=== PATIENT | female | born 1995 | race American Indian/Alaskan Native ===

== ENCOUNTER 2016-07-23 08:52 | Emergency (ER) | payer SELFPAY ==
[2016-07-23 09:23] VITALS: BP 107/69
--- NOTE | 2016-07-23 09:52 | Emergency Department Report ---
ED Female HPI - General Chief complaint: Urogenital-Female Stated complaint: FREQUENT AND PAINFUL URINATION Time Seen by Provider: 07/23/16 09:38 Source: patient, family Mode of arrival: Ambulatory Limitations: No Limitations - History of Present Illness Initial comments: Patient here complaining of frequent urination and urgency with urination since yesterday. She is complaining of burning and blood in his urine since last night. She is also complaining the lower back pain and pelvic pain this morning. Denies any fever. Denies any nausea vomiting or diarrhea. Pain is 10 out of 10 to her pelvic and 9 out of 10 to her back. MD Complaint: dysuria, pelvic pain Onset/Timin -: days(s) Radiation: non-radiating Severity: severe Severity scale (0 -10): 10 Quality: cramping Improves with: none Worsens with: urination Are you Now?: No Associated Symptoms: abdominal pain, dysuria, hematuria. denies: vaginal discharge, vaginal bleeding, nausea/vomiting, fever/chills, headaches, loss of appetite, rash, seizure, shortness of breath, syncope, weakness - Related Data Sexually active: Yes Previous Rx's Medication Instructions Recorded Last Taken Type Nitrofurantoin [place]/M-Cryst 100 mg PO Q12HR #14 capsule 07/23/16 Unknown Rx [Macrobid CAP] Allergies Allergy/AdvReac Type Severity Reaction Status Date / Time No Known Allergies Allergy Verified 07/23/16 09:24 ED Review of Systems ROS: Stated complaint: FREQUENT AND PAINFUL URINATION Other details as noted in HPI Comment: All other systems reviewed and negative Constitutional: denies: chills, fever Respiratory: no symptoms reported Cardiovascular: denies: chest pain, palpitations, edema, syncope Gastrointestinal: abdominal pain. denies: nausea, vomiting, diarrhea Genitourinary: urgency, dysuria, frequency, hematuria. denies: discharge, abnormal menses, dyspareunia Musculoskeletal: back pain. denies: arthralgia Skin: denies: rash Neurological: denies: headache, weakness, abnormal gait, vertigo ED Past Medical Hx - Past Medical History Previous Medical History?: Yes Hx Hypertension: Yes (NO MEDICATIONS) Hx Congestive Heart Failure: No Hx Diabetes: No Hx Deep Vein Thrombosis: No Hx Renal Disease: No Hx Sickle Cell Disease: No Hx Seizures: No Hx Asthma: No Hx COPD: No Hx HIV: No Additional medical history: Vaginal delivery 11-13-2011 - Surgical History Past Surgical History?: No - Family History Family history: hypertension - Social History Smoking Status: Current Every Day Smoker Substance Use Type: Marijuana - Medications Home Medications: Home Medications Medication Instructions Recorded Confirmed Last Taken Type Nitrofurantoin [place]/M-Cryst 100 mg PO Q12HR #14 capsule 07/23/16 Unknown Rx [Macrobid CAP] ED Physical Exam - General Limitations: No Limitations General appearance: alert, in no apparent distress - Head Head exam: Present: atraumatic, normocephalic, normal inspection - Respiratory Respiratory exam: Present: normal lung sounds bilaterally. Absent: respiratory distress, chest wall tenderness - Cardiovascular Cardiovascular Exam: Present: regular rate, normal rhythm, normal heart sounds - GI/Abdominal GI/Abdominal exam: Present: soft, normal bowel sounds. Absent: distended, tenderness, guarding, rebound, rigid, organomegaly, mass - Extremities Exam Extremities exam: Present: normal inspection, full ROM, normal capillary refill. Absent: tenderness, pedal edema, joint swelling, calf tenderness - Back Exam Back exam: Present: normal inspection, full ROM. Absent: tenderness, CVA tenderness (R), CVA tenderness (L), muscle spasm, paraspinal tenderness, vertebral tenderness, rash noted - Neurological Exam Neurological exam: Present: alert, oriented X3, normal gait - Psychiatric Psychiatric exam: Present: normal affect, normal mood - Skin Skin exam: Present: warm, dry, intact, normal color. Absent: rash ED Course Vital Signs 07/23/16 09:20 Temperature 98.5 F Pulse Rate 78 Respiratory 18 Rate Blood Pressure 107/69 O2 Sat by Pulse 100 Oximetry - Reevaluation(s) Reevaluation #1: 07/23/16 11:28 She is stable throughout ED course ED Medical Decision Making - Lab Data Lab Results 07/23/16 Range/Units 09:43 Urine Color Yellow (Yellow) Urine Turbidity Cloudy (Clear) Urine pH 7.0 (5.0-7.0) Ur Specific [place] 1.020 (1.003-1.030) Urine Protein 100 mg/dl (Negative) mg/dL Urine Glucose (UA) Neg (Negative) mg/dL Urine Ketones Neg (Negative) mg/dL Urine Blood Lg (Negative) Urine Nitrite Neg (Negative) Ur Reducing Substances Not Reportable Urine Bilirubin Neg (Negative) Urine Ictotest Not Reportable Urine Urobilinogen < 2.0 (<2.0) mg/dL Ur Leukocyte Esterase Lg (Negative) Urine WBC (Auto) > 182.0 H (0.0-6.0) /HPF Urine RBC (Auto) > 182.0 (0.0-6.0) /HPF U Epithel Cells (Auto) 2.0 (0-13.0) /HPF Urine Bacteria (Auto) 1+ (Negative) /HPF Urine WBC Clumps 1+ /HPF Calcium Oxalate Crystal 2+ Amorphous Crystals 1+ Urine Mucus Few /HPF Urine HCG, Qual Negative (Negative) Urine culture pending - Medical Decision Making Collaborated with Dr. Ramírez and patient presentation. ED course: I discussed the patient that she has a bladder infection which can cause hemorrhage at times. I also told her that she has protein in her urine and she will need to follow-up for repeat urinalysis in one week. And does not have a primary care physician so I told her to follow up with outside Medical Center. I told her to call the number and subsequent appointment on Monday for repeat urinalysis. Patient voiced understanding of discharge instruction and discharged home in stable condition with prescription for Macrobid. Critical care attestation.: If time is entered above; I have spent that time in minutes in the direct care of this critically ill patient, excluding procedure time. ED Disposition Clinical Impression: Acute cystitis with hematuria, Proteinuria Abdominal pain Qualifiers: Abdominal location: lower abdomen, unspecified Qualified Code(s): R10.30 - Lower abdominal pain, unspecified Disposition: DISCHARGED TO HOME OR SELFCARE Is pt being admited?: No Does the pt Need Aspirin: No Condition: Stable Instructions: Urinary Tract Infection in Women (ED) Additional Instructions: You have protein in the urine and will need to schedule an appointment at [facility] for recheck urinalysis in 7 days. Take medication as prescribed. Drink at least 2-3 L of fluid daily. Prescriptions: Nitrofurantoin [place]/M-Cryst [Macrobid CAP] 100 mg PO Q12HR #14 capsule Referrals: PRIMARY CARE, [Primary Care Provider] - 07/29/16 [facility] [Outside] - 07/29/16 Forms: Work/School Release Form(ED)
[2016-07-23 10:56] LABS: Bacteria,Urine 1+ /HPF (Negative); Bilirubin,Urine NEG (Negative); Blood,Urine LG (Negative); Ketones,Urine NEG (Negative); Leukocyte Esterase,Urine LG (Negative); Mucus,Urine FEW /HPF; Nitrite,Urine NEG (Negative); Urobilinogen,Urine < 2.0 mg/dL (<2.0)
[2016-07-23 10:57] LABS: RBC,Urine > 182.0 /HPF (0.0-6.0); WBC,Urine > 182.0 /HPF (0.0-6.0)
== END 2016-07-23 11:40 | disposition home or self-care (01) ==
LOC: ED 08:52
DX: N30.01 Acute cystitis with hematuria (principal); R80.9 Proteinuria, unspecified; I10 Essential (primary) hypertension; F17.200 Nicotine dependence, unspecified, uncomplicated; F12.10 Cannabis abuse, uncomplicated
CPT/HCPCS: 81001; 81025; 99282

== ENCOUNTER 2016-07-26 11:53 | Emergency (ER) | payer OTHER ==
[2016-07-26 12:03] VITALS: BP 103/56
[2016-07-26 13:02] LABS: Bacteria,Urine 1+ /HPF (Negative); Bilirubin,Urine NEG (Negative); Blood,Urine LG (Negative); Ketones,Urine NEG (Negative); Leukocyte Esterase,Urine MOD (Negative); Mucus,Urine 3+ /HPF; Nitrite,Urine NEG (Negative); Urobilinogen,Urine < 2.0 mg/dL (<2.0)
[2016-07-26 13:03] LABS: RBC,Urine > 182.0 /HPF (0.0-6.0); WBC,Urine > 182.0 /HPF (0.0-6.0)
--- NOTE | 2016-07-26 13:10 | Emergency Department Report ---
ED General Adult HPI - General Chief complaint: Urogenital-Female Stated complaint: POSS UTI Time Seen by Provider: 07/26/16 12:16 Source: patient, EMS Mode of arrival: Ambulatory Limitations: No Limitations - History of Present Illness Initial comments: 20-year-old female presents to the ED complaining about blood in her urine. Patient states that she was just seen here and treated for UTI with Macrobid. States taking medication but no relief. Eyes fever, flank pain, dysuria. Patient also denies abdominal pain. - Related Data Previous Rx's Medication Instructions Recorded Last Taken Type Nitrofurantoin [place]/M-Cryst 100 mg PO Q12HR #14 capsule 07/23/16 Unknown Rx [Macrobid CAP] Ciprofloxacin HCl [Ciprofloxacin 500 mg PO BID #14 tablet 07/26/16 Unknown Rx TAB] Allergies Allergy/AdvReac Type Severity Reaction Status Date / Time No Known Allergies Allergy Verified 07/23/16 09:24 ED Review of Systems ROS: Stated complaint: POSS UTI Other details as noted in HPI Constitutional: denies: chills, fever Eyes: denies: eye pain, eye discharge, vision change ENT: denies: ear pain, throat pain Respiratory: denies: cough, shortness of breath, wheezing Cardiovascular: denies: chest pain, palpitations Endocrine: no symptoms reported Gastrointestinal: denies: abdominal pain, nausea, diarrhea Genitourinary: urgency, frequency, hematuria. denies: dysuria, discharge Musculoskeletal: denies: back pain, joint swelling, arthralgia Skin: denies: rash, lesions Neurological: denies: headache, weakness, paresthesias Psychiatric: denies: anxiety, depression Hematological/Lymphatic: denies: easy bleeding, easy bruising ED Past Medical Hx - Past Medical History Previous Medical History?: Yes Hx Hypertension: Yes (NO MEDICATIONS) Hx Congestive Heart Failure: No Hx Diabetes: No Hx Deep Vein Thrombosis: No Hx Renal Disease: No Hx Sickle Cell Disease: No Hx Seizures: No Hx Asthma: No Hx COPD: No Hx HIV: No Additional medical history: Vaginal delivery 11-13-2011, Freuquent UTI - Surgical History Past Surgical History?: No - Social History Smoking Status: Current Every Day Smoker Substance Use Type: Alcohol - Medications Home Medications: Home Medications Medication Instructions Recorded Confirmed Last Taken Type Nitrofurantoin [place]/M-Cryst 100 mg PO Q12HR #14 capsule 07/23/16 Unknown Rx [Macrobid CAP] Ciprofloxacin HCl [Ciprofloxacin 500 mg PO BID #14 tablet 07/26/16 Unknown Rx TAB] ED Physical Exam - General Limitations: No Limitations General appearance: alert, in no apparent distress - Head Head exam: Present: atraumatic, normocephalic - Eye Eye exam: Present: normal appearance - ENT ENT exam: Present: mucous membranes moist - Neck Neck exam: Present: normal inspection - Respiratory Respiratory exam: Present: normal lung sounds bilaterally. Absent: respiratory distress - Cardiovascular Cardiovascular Exam: Present: regular rate, normal rhythm. Absent: systolic murmur, diastolic murmur, rubs, gallop - GI/Abdominal GI/Abdominal exam: Present: soft, normal bowel sounds - Extremities Exam Extremities exam: Present: normal inspection - Back Exam Back exam: Present: normal inspection - Neurological Exam Neurological exam: Present: alert, oriented X3 - Psychiatric Psychiatric exam: Present: normal affect, normal mood - Skin Skin exam: Present: warm, dry, intact, normal color. Absent: rash ED Course Vital Signs 07/26/16 11:58 Temperature 98.4 F Pulse Rate 97 H Respiratory 20 Rate Blood Pressure 103/56 O2 Sat by Pulse 100 Oximetry ED Medical Decision Making - Medical Decision Making We'll discontinue Macrobid and start on Cipro. Critical care attestation.: If time is entered above; I have spent that time in minutes in the direct care of this critically ill patient, excluding procedure time. ED Disposition Clinical Impression: Acute cystitis with hematuria Disposition: DISCHARGED TO HOME OR SELFCARE Is pt being admited?: No Does the pt Need Aspirin: No Condition: Good Instructions: Urinary Tract Infection in Women (ED) Prescriptions: Ciprofloxacin HCl [Ciprofloxacin TAB] 500 mg PO BID #14 tablet Referrals: PRIMARY CARE, [Primary Care Provider] - 3-5 Days Forms: Work/School Release Form(ED) Time of Disposition: 13:10
== END 2016-07-26 13:15 | disposition home or self-care (01) ==
LOC: ED 11:53
DX: N30.01 Acute cystitis with hematuria (principal); I10 Essential (primary) hypertension; F17.200 Nicotine dependence, unspecified, uncomplicated
CPT/HCPCS: 81001; 81025; 99283

== ENCOUNTER 2016-08-04 23:23 | Emergency (ER) | payer OTHER ==
[2016-08-05 01:40] LABS: Bilirubin,Urine NEG (Negative); Blood,Urine NEG (Negative); Ketones,Urine NEG (Negative); Leukocyte Esterase,Urine NEG (Negative); Mucus,Urine FEW /HPF; Nitrite,Urine NEG (Negative); Protein,Urine <15 mg/dL mg/dL (Negative); Urobilinogen,Urine < 2.0 mg/dL (<2.0)
--- NOTE | 2016-08-05 03:21 | Emergency Department Report ---
ED Female HPI - General Chief complaint: Urogenital-Female Stated complaint: PAINFUL URINATION/DISCHARGE Time Seen by Provider: 08/05/16 03:02 Source: patient Mode of arrival: Ambulatory Limitations: No Limitations - History of Present Illness Initial comments: Annual female presents to emergency with complaints of vaginal discharge last 2 days. Patient treated with antibiotics. Patient denies of any STD exposure. Complaints of vaginal itching with vaginal discharge. Denies any urinary symptoms at this point. -: Gradual, days(s) (2) Location: labia Radiation: non-radiating Severity: mild Severity scale (0 -10): 2 Quality: cramping, dull Consistency: constant Improves with: none Worsens with: intercourse Are you Now?: No Associated Symptoms: vaginal discharge - Related Data Sexually active: Yes Previous Rx's Medication Instructions Recorded Last Taken Type Nitrofurantoin [place]/M-Cryst 100 mg PO Q12HR #14 capsule 07/23/16 Unknown Rx [Macrobid CAP] Ciprofloxacin HCl [Ciprofloxacin 500 mg PO BID #14 tablet 07/26/16 Unknown Rx TAB] metroNIDAZOLE [Flagyl] 500 mg PO Q12HR #14 tab 08/05/16 Unknown Rx Allergies Allergy/AdvReac Type Severity Reaction Status Date / Time No Known Allergies Allergy Verified 07/23/16 09:24 ED Review of Systems ROS: Stated complaint: PAINFUL URINATION/DISCHARGE Other details as noted in HPI Comment: All other systems reviewed and negative Constitutional: denies: chills, fever Eyes: denies: eye pain, eye discharge, vision change ENT: denies: ear pain, throat pain Respiratory: denies: cough, shortness of breath, wheezing Cardiovascular: denies: chest pain, palpitations Endocrine: no symptoms reported Gastrointestinal: denies: abdominal pain, nausea, diarrhea Genitourinary: other (vaginal discharge). denies: urgency, dysuria, discharge Musculoskeletal: denies: back pain, joint swelling, arthralgia Skin: denies: rash, lesions Neurological: denies: headache, weakness, paresthesias Psychiatric: denies: anxiety, depression Hematological/Lymphatic: denies: easy bleeding, easy bruising ED Past Medical Hx - Past Medical History Previous Medical History?: Yes Hx Hypertension: Yes (NO MEDICATIONS) Hx Congestive Heart Failure: No Hx Diabetes: No Hx Deep Vein Thrombosis: No Hx Renal Disease: No Hx Sickle Cell Disease: No Hx Seizures: No Hx Asthma: No Hx COPD: No Hx HIV: No Additional medical history: Vaginal delivery 11-13-2011, Freuquent UTI - Surgical History Past Surgical History?: No - Social History Smoking Status: Current Every Day Smoker Substance Use Type: None - Medications Home Medications: Home Medications Medication Instructions Recorded Confirmed Last Taken Type Nitrofurantoin [place]/M-Cryst 100 mg PO Q12HR #14 capsule 07/23/16 Unknown Rx [Macrobid CAP] Ciprofloxacin HCl [Ciprofloxacin 500 mg PO BID #14 tablet 07/26/16 Unknown Rx TAB] metroNIDAZOLE [Flagyl] 500 mg PO Q12HR #14 tab 08/05/16 Unknown Rx ED Physical Exam - General Limitations: No Limitations General appearance: alert, in no apparent distress - Head Head exam: Present: atraumatic, normocephalic - Eye Eye exam: Present: normal appearance - ENT ENT exam: Present: mucous membranes moist - Neck Neck exam: Present: normal inspection - Respiratory Respiratory exam: Present: normal lung sounds bilaterally. Absent: respiratory distress - Cardiovascular Cardiovascular Exam: Present: regular rate, normal rhythm. Absent: systolic murmur, diastolic murmur, rubs, gallop - GI/Abdominal GI/Abdominal exam: Present: soft, normal bowel sounds - External exam: Present: normal external exam Speculum exam: Present: vaginal discharge, other (female RN present in the room with boy gelacio at the bed side) - Extremities Exam Extremities exam: Present: normal inspection - Back Exam Back exam: Present: normal inspection - Neurological Exam Neurological exam: Present: alert, oriented X3 - Psychiatric Psychiatric exam: Present: normal affect, normal mood - Skin Skin exam: Present: warm, dry, intact, normal color. Absent: rash ED Course Vital Signs 08/04/16 23:35 Temperature 98.6 F Pulse Rate 88 Respiratory 18 Rate Blood Pressure 111/70 Blood Pressure 111/70 [Right] O2 Sat by Pulse 100 Oximetry ED Medical Decision Making - Lab Data Positive clue cells on a wet prep mount. Critical care attestation.: If time is entered above; I have spent that time in minutes in the direct care of this critically ill patient, excluding procedure time. ED Disposition Clinical Impression: Bacterial vaginosis Disposition: DISCHARGED TO HOME OR SELFCARE Is pt being admited?: No Does the pt Need Aspirin: No Condition: Good Instructions: Bacterial Vaginosis (ED) Prescriptions: metroNIDAZOLE [Flagyl] 500 mg PO Q12HR #14 tab Referrals: [facility] [Provider Group] - 3-5 Days Forms: STI Treatment and Prevention
[2016-08-05 05:11] VITALS: BP 99/72
== END 2016-08-05 05:10 | disposition home or self-care (01) ==
LOC: ED 23:23
DX: N76.0 Acute vaginitis (principal); I10 Essential (primary) hypertension; F17.200 Nicotine dependence, unspecified, uncomplicated
CPT/HCPCS: 81001; 87210; 99284

== ENCOUNTER 2017-05-31 13:07 | Emergency (ER) | payer MEDICAID ==
[2017-05-31] MEDS ORDERED: TESSALON PERLES PO ONE (18:02)
--- NOTE | 2017-05-31 20:44 | XRay Report ---
FINAL REPORT EXAM: XR CHEST ROUTINE 2V HISTORY: cough TECHNIQUE: PA and lateral views of the chest PRIORS: None. FINDINGS: Lines, tubes, and devices: N/A Lungs and pleura: Trachea is normal in position. Lungs are clear of infiltrate, pleural effusion, vascular congestion, or pneumothorax. Cardiomediastinal silhouette: Cardiac and mediastinal silhouettes are unremarkable. Other: Bony structures are intact. IMPRESSION: No acute cardiopulmonary process seen.
--- NOTE | 2017-05-31 21:07 | Emergency Department Report ---
- General Chief Complaint: Upper Respiratory Infection Stated Complaint: COUGH/BODY PAIN ASSUALTED Time Seen by Provider: 05/31/17 18:24 Source: patient Mode of arrival: Ambulatory Limitations: No Limitations - History of Present Illness Initial Comments: This is a 21-year-old female nontoxic, well nourished in appearance, no acute signs of distress presents to the ED with c/o of productive cough, nasal congestion, body aches, rhinnorrhea x3 weeks. Patient describes productive causes yellow/green mucous production. Patient denies any recent travels, long car rides, recent hospital stays. Denies any calf pain or calf tenderness. Denies any hemoptysis, chills, fever, chills, headache, stiff neck, nausea, vomiting, chest pain, shortness of breath, difficulty breathing, wheezing, back pain, abdominal pain, numbness or tingling. Patient denies any allergies. PMH includes HTN. MD Complaint: cough, rhinorrhea, nasal congestion, sinus pain -: week(s) (3) Severity: mild Severity scale (0 -10): 0 Consistency: constant Improves With: nothing Worsens With: nothing Associated Symptoms: rhinorrhea, nasal congestion, cough. denies: fever, chills , myalgias, diaphoresis, headache, sore throat, stiff neck, chest pain, shortness of breath, abdominal pain, nausea, vomiting, diarrhea, dysuria, rash, confusion, right sweats, weight loss, epistaxis, hoarseness, ear pain Treatments Prior to Arrival: none - Related Data Previous Rx's Medication Instructions Recorded Last Taken Type Nitrofurantoin [place]/M-Cryst 100 mg PO Q12HR #14 capsule 07/23/16 Unknown Rx [Macrobid CAP] Ciprofloxacin HCl [Ciprofloxacin 500 mg PO BID #14 tablet 07/26/16 Unknown Rx TAB] metroNIDAZOLE [Flagyl] 500 mg PO Q12HR #14 tab 08/05/16 Unknown Rx Azithromycin [Zithromax Z-CHINTAN] 250 mg PO DAILY #6 tablet 05/31/17 Unknown Rx Benzonatate [Tessalon Perle] 100 mg PO Q6H PRN #20 capsule 05/31/17 Unknown Rx Allergies Allergy/AdvReac Type Severity Reaction Status Date / Time No Known Allergies Allergy Verified 07/23/16 09:24 ED Review of Systems ROS: Stated complaint: COUGH/BODY PAIN ASSUALTED Other details as noted in HPI Constitutional: denies: chills, fever Eyes: denies: eye pain, eye discharge, vision change ENT: denies: ear pain, throat pain Respiratory: cough. denies: shortness of breath, wheezing Cardiovascular: denies: chest pain, palpitations Endocrine: no symptoms reported Gastrointestinal: denies: abdominal pain, nausea, diarrhea Genitourinary: denies: urgency, dysuria, discharge Musculoskeletal: denies: back pain, joint swelling, arthralgia Skin: denies: rash, lesions Neurological: denies: headache, weakness, paresthesias Psychiatric: denies: anxiety, depression Hematological/Lymphatic: denies: easy bleeding, easy bruising ED Past Medical Hx - Past Medical History Previous Medical History?: Yes Hx Hypertension: Yes (NO MEDICATIONS) Hx Congestive Heart Failure: No Hx Diabetes: No Hx Deep Vein Thrombosis: No Hx Renal Disease: No Hx Sickle Cell Disease: No Hx Seizures: No Hx Asthma: No Hx COPD: No Hx HIV: No Additional medical history: Vaginal delivery 11-13-2011, Freuquent UTI - Surgical History Past Surgical History?: No - Social History Smoking Status: Current Every Day Smoker Substance Use Type: Alcohol, Marijuana, Prescribed - Medications Home Medications: Home Medications Medication Instructions Recorded Confirmed Last Taken Type Nitrofurantoin [place]/M-Cryst 100 mg PO Q12HR #14 capsule 07/23/16 Unknown Rx [Macrobid CAP] Ciprofloxacin HCl [Ciprofloxacin 500 mg PO BID #14 tablet 07/26/16 Unknown Rx TAB] metroNIDAZOLE [Flagyl] 500 mg PO Q12HR #14 tab 08/05/16 Unknown Rx Azithromycin [Zithromax Z-CHINTAN] 250 mg PO DAILY #6 tablet 05/31/17 Unknown Rx Benzonatate [Tessalon Perle] 100 mg PO Q6H PRN #20 capsule 05/31/17 Unknown Rx ED Physical Exam - General Limitations: No Limitations General appearance: alert, in no apparent distress - Head Head exam: Present: atraumatic, normocephalic, normal inspection - Eye Eye exam: Present: normal appearance, PERRL, EOMI. Absent: scleral icterus, conjunctival injection, nystagmus, periorbital swelling, periorbital tenderness Pupils: Present: normal accommodation - ENT ENT exam: Present: normal exam, normal orophraynx, mucous membranes moist, TM's normal bilaterally, normal external ear exam - Neck Neck exam: Present: normal inspection, full ROM. Absent: tenderness, meningismus, lymphadenopathy, thyromegaly - Respiratory Respiratory exam: Present: normal lung sounds bilaterally. Absent: respiratory distress, wheezes, rales, rhonchi, stridor, chest wall tenderness, accessory muscle use, decreased breath sounds, prolonged expiratory - Cardiovascular Cardiovascular Exam: Present: regular rate, normal rhythm, normal heart sounds. Absent: bradycardia, tachycardia, irregular rhythm, systolic murmur, diastolic murmur, rubs, gallop - GI/Abdominal GI/Abdominal exam: Present: soft, normal bowel sounds. Absent: distended, tenderness, guarding, rebound, rigid, diminished bowel sounds - Rectal Rectal exam: Present: deferred - Extremities Exam Extremities exam: Present: normal inspection, full ROM, normal capillary refill. Absent: tenderness, pedal edema, joint swelling, calf tenderness - Back Exam Back exam: Present: normal inspection, full ROM. Absent: tenderness, CVA tenderness (R), CVA tenderness (L), muscle spasm, paraspinal tenderness, vertebral tenderness, rash noted - Neurological Exam Neurological exam: Present: alert, oriented X3, CN II-XII intact, normal gait, reflexes normal - Psychiatric Psychiatric exam: Present: normal affect, normal mood - Skin Skin exam: Present: warm, dry, intact, normal color. Absent: rash ED Course Vital Signs 05/31/17 15:22 Temperature 98.5 F Pulse Rate 90 Respiratory 18 Rate Blood Pressure 107/62 O2 Sat by Pulse 100 Oximetry - Reevaluation(s) Reevaluation #1: 05/31/17 21:07 Patient is speaking in full sentences with no signs of distress noted. ED Medical Decision Making - Medical Decision Making This is a 21-year-old female that presents with upper resp infectin. Patient is stable and was examined by me. Chest x-ray has been obtained and the radiologist with normal exam. Negative influenza swab. Vital signs stable. Patient afebrile. Patient is treated empirically with azithromycin due to symptoms are worsening as per patient. She also received Tessalon Perle in the ED as well as discharge. Patient was instructed Follow-up with a primary care doctor in 3-5 days or if symptoms worsen and continue return to emergency room as soon as possible. At time time of discharge, the patient does not seem toxic or ill in appearance. No acute signs of distress noted. Patient agrees to discharge treatment plan of care. No further questions noted by the patient. This chart is dictated with using [employer]ation [employer] Critical care attestation.: If time is entered above; I have spent that time in minutes in the direct care of this critically ill patient, excluding procedure time. ED Disposition Clinical Impression: Upper respiratory infection Qualifiers: URI type: unspecified URI Qualified Code(s): J06.9 - Acute upper respiratory infection, unspecified Disposition: - TO HOME OR SELFCARE Is pt being admited?: No Does the pt Need Aspirin: No Condition: Stable Instructions: Benzonatate (By mouth), Azithromycin (By mouth), Upper Respiratory Infection (ED) Additional Instructions: Follow-up with a primary care doctor in 3-5 days or if symptoms worsen and continue return to emergency room as soon as possible. Prescriptions: Azithromycin [Zithromax Z-CHINTAN] 250 mg PO DAILY #6 tablet Benzonatate [Tessalon Perle] 100 mg PO Q6H PRN #20 capsule PRN Reason: Cough Referrals: MARTIN JEAN MD [Primary Care Provider] - 3-5 Days PRIMARY CARE, [Referring] - 3-5 Days [facility] [Outside] - 3-5 Days [facility] [Outside] - 3-5 Days Forms: Work/School Release Form(ED)
[2017-05-31 21:20] VITALS: BP 97/62
== END 2017-05-31 22:15 | disposition home or self-care (01) ==
LOC: ED 13:07
DX: J06.9 Acute upper respiratory infection, unspecified (principal); I10 Essential (primary) hypertension; F12.10 Cannabis abuse, uncomplicated; F17.200 Nicotine dependence, unspecified, uncomplicated
CPT/HCPCS: 71046; 87400; 99283

== ENCOUNTER 2017-08-04 09:59 | Emergency (ER) | payer MEDICAID ==
[2017-08-04 10:51] LABS: Basophils % (Auto) 0.6 % (0.0-1.8); Eosinophils # (Auto) 0.1 K/mm3 (0.0-0.4); Eosinophils % (Auto) 1.8 % (0.0-4.3); Hematocrit 38.2 % (30.3-42.9); Hemoglobin 12.2 gm/dl (10.1-14.3); Lymphocytes # (Auto) 1.5 K/mm3 (1.2-5.4); Lymphocytes % (Auto) 38.1 % (13.4-35.0); Mean Corpuscular HGB Conc 32 % (30-34); Mean Corpuscular Hemoglobin 29 pg (28-32); Mean Corpuscular Volume 91 fl (79-97); Monocytes # (Auto) 0.3 K/mm3 (0.0-0.8); Monocytes % (Auto) 6.3 % (0.0-7.3); Platelet Count 163 K/mm3 (140-440); Red Blood Count 4.22 M/mm3 (3.65-5.03)
[2017-08-04 11:12] LABS: Alanine Aminotransferase 7 units/L (7-56); Albumin 4.2 g/dL (3.9-5); BUN/Creatinine Ratio 9; Blood Urea Nitrogen 7 mg/dL (7-17); Calcium 8.9 mg/dL (8.4-10.2); Hemolysis Index 5
[2017-08-04 11:18] LABS: HCG Qualitative,Urine Negative (Negative)
[2017-08-04 11:23] LABS: Bilirubin,Urine NEG (Negative); Blood,Urine NEG (Negative); Color,Urine Yellow (Yellow); Hyaline Casts,Urine 1 /LPF; Mucus,Urine 3+ /HPF; Protein,Urine <15 mg/dL mg/dL (Negative)
[2017-08-04] MEDS ORDERED: NACL 0.9% 1000 ML 1,000 ML ONE (11:52)
[2017-08-04] MEDS: NACL 0.9% 1000 ML 1,000 ML IV ONE (11:55)
[2017-08-04] MEDS: TORADOL IV ONE (12:02)
[2017-08-04] MEDS: REGLAN IV ONE (12:02)
[2017-08-04] MEDS: BENADRYL IV ONE (12:02)
[2017-08-04] MEDS: BENTYL PO ONE (12:32)
[2017-08-04 13:05] VITALS: BP 93/53
--- NOTE | 2017-08-04 13:07 | Emergency Department Report ---
ED General Adult HPI - General Chief complaint: Abdominal Pain Stated complaint: CRAMPS Time Seen by Provider: 08/04/17 11:46 Source: patient Mode of arrival: Ambulatory Limitations: No Limitations - History of Present Illness Initial comments: Patient is a 21-year-old female, past medical history who presents with abdominal pain nausea and vomiting as well as her normal last 3 weeks. Patient states that she is having intermittent cramping no pain when she urinates. She states the pain as a 6 out of 10 and it radiates down to her groin patient states that she is sexually active she denies having any vaginal discharge or any vaginal bleeding as he is not sure if she is or not. The patient also states that she is having nausea and vomiting and some diarrhea as well. Severity scale (0 -10): 6 - Related Data Previous Rx's Medication Instructions Recorded Last Taken Type Nitrofurantoin [place]/M-Cryst 100 mg PO Q12HR #14 capsule 07/23/16 Unknown Rx [Macrobid CAP] Ciprofloxacin HCl [Ciprofloxacin 500 mg PO BID #14 tablet 07/26/16 Unknown Rx TAB] metroNIDAZOLE [Flagyl] 500 mg PO Q12HR #14 tab 08/05/16 Unknown Rx Azithromycin [Zithromax Z-CHINTAN] 250 mg PO DAILY #6 tablet 05/31/17 Unknown Rx Benzonatate [Tessalon Perle] 100 mg PO Q6H PRN #20 capsule 05/31/17 Unknown Rx Meloxicam [Mobic] 7.5 mg PO DAILY PRN #20 tablet 08/04/17 Unknown Rx Promethazine [Phenergan TAB] 25 mg PO Q6HR PRN #25 tab 08/04/17 Unknown Rx Allergies Allergy/AdvReac Type Severity Reaction Status Date / Time No Known Allergies Allergy Verified 07/23/16 09:24 ED Review of Systems ROS: Stated complaint: CRAMPS Other details as noted in HPI Constitutional: denies: chills, fever Eyes: denies: eye pain, eye discharge, vision change ENT: denies: ear pain, throat pain Respiratory: denies: cough, shortness of breath, wheezing Cardiovascular: denies: chest pain, palpitations Endocrine: no symptoms reported Gastrointestinal: nausea, vomiting. denies: abdominal pain, diarrhea Genitourinary: denies: urgency, dysuria, discharge Musculoskeletal: denies: back pain, joint swelling, arthralgia Skin: denies: rash, lesions Neurological: denies: headache, weakness, paresthesias Psychiatric: denies: anxiety, depression Hematological/Lymphatic: denies: easy bleeding, easy bruising ED Past Medical Hx - Past Medical History Hx Hypertension: Yes (NO MEDICATIONS) Hx Congestive Heart Failure: No Hx Diabetes: No Hx Deep Vein Thrombosis: No Hx Renal Disease: No Hx Sickle Cell Disease: No Hx Seizures: No Hx Asthma: No Hx COPD: No Hx HIV: No Additional medical history: Vaginal delivery 11-13-2011, Freuquent UTI - Social History Smoking Status: Current Every Day Smoker Substance Use Type: Marijuana - Medications Home Medications: Home Medications Medication Instructions Recorded Confirmed Last Taken Type Nitrofurantoin [place]/M-Cryst 100 mg PO Q12HR #14 capsule 07/23/16 Unknown Rx [Macrobid CAP] Ciprofloxacin HCl [Ciprofloxacin 500 mg PO BID #14 tablet 07/26/16 Unknown Rx TAB] metroNIDAZOLE [Flagyl] 500 mg PO Q12HR #14 tab 08/05/16 Unknown Rx Azithromycin [Zithromax Z-CHINTAN] 250 mg PO DAILY #6 tablet 05/31/17 Unknown Rx Benzonatate [Tessalon Perle] 100 mg PO Q6H PRN #20 capsule 05/31/17 Unknown Rx Meloxicam [Mobic] 7.5 mg PO DAILY PRN #20 tablet 08/04/17 Unknown Rx Promethazine [Phenergan TAB] 25 mg PO Q6HR PRN #25 tab 08/04/17 Unknown Rx ED Physical Exam - General Limitations: No Limitations General appearance: alert, in no apparent distress - Head Head exam: Present: atraumatic, normocephalic - Eye Eye exam: Present: normal appearance - ENT ENT exam: Present: mucous membranes moist - Neck Neck exam: Present: normal inspection - Respiratory Respiratory exam: Present: normal lung sounds bilaterally. Absent: respiratory distress - Cardiovascular Cardiovascular Exam: Present: regular rate, normal rhythm. Absent: systolic murmur, diastolic murmur, rubs, gallop - GI/Abdominal GI/Abdominal exam: Present: soft, normal bowel sounds - Extremities Exam Extremities exam: Present: normal inspection - Back Exam Back exam: Present: normal inspection - Neurological Exam Neurological exam: Present: alert, oriented X3 - Psychiatric Psychiatric exam: Present: normal affect, normal mood - Skin Skin exam: Present: warm, dry, intact, normal color. Absent: rash ED Course Vital Signs 08/04/17 08/04/17 10:26 13:04 Temperature 98.3 F Pulse Rate 86 84 Respiratory 16 16 Rate Blood Pressure 87/55 93/53 [Right] O2 Sat by Pulse 100 97 Oximetry ED Medical Decision Making - Lab Data Result diagrams: 08/04/17 10:39 08/04/17 10:39 Lab Results 08/04/17 08/04/17 08/04/17 Range/Units 10:39 10:39 10:43 WBC 4.0 L (4.5-11.0) K/mm3 RBC 4.22 (3.65-5.03) M/mm3 Hgb 12.2 (10.1-14.3) gm/dl Hct 38.2 (30.3-42.9) % MCV 91 (79-97) fl MCH 29 (28-32) pg MCHC 32 (30-34) % RDW 14.0 (13.2-15.2) % Plt Count 163 (140-440) K/mm3 Lymph % (Auto) 38.1 H (13.4-35.0) % [place] % (Auto) 6.3 (0.0-7.3) % Eos % (Auto) 1.8 (0.0-4.3) % Baso % (Auto) 0.6 (0.0-1.8) % Lymph # 1.5 (1.2-5.4) K/mm3 [place] # 0.3 (0.0-0.8) K/mm3 Eos # 0.1 (0.0-0.4) K/mm3 Baso # 0.0 (0.0-0.1) K/mm3 Seg Neutrophils % 53.2 (40.0-70.0) % Seg Neutrophils # 2.1 (1.8-7.7) K/mm3 Sodium 137 (137-145) mmol/L Potassium 3.8 (3.6-5.0) mmol/L Chloride 100.7 (98-107) mmol/L Carbon Dioxide 23 (22-30) mmol/L Anion Gap 17 mmol/L BUN 7 (7-17) mg/dL Creatinine 0.8 (0.7-1.2) mg/dL Estimated GFR > 60 ml/min BUN/Creatinine Ratio 9 % Glucose 80 (65-100) mg/dL Calcium 8.9 (8.4-10.2) mg/dL Total Bilirubin 0.40 (0.1-1.2) mg/dL AST 13 (5-40) units/L ALT 7 (7-56) units/L Alkaline Phosphatase 39 (35-129) units/L Total Protein 6.7 (6.3-8.2) g/dL Albumin 4.2 (3.9-5) g/dL Albumin/Globulin Ratio 1.7 % Urine Color Yellow (Yellow) Urine Turbidity Clear (Clear) Urine pH 7.0 (5.0-7.0) Ur Specific [place] 1.024 (1.003-1.030) Urine Protein <15 mg/dl (Negative) mg/dL Urine Glucose (UA) Neg (Negative) mg/dL Urine Ketones Neg (Negative) mg/dL Urine Blood Neg (Negative) Urine Nitrite Neg (Negative) Ur Reducing Substances Not Reportable Urine Bilirubin Neg (Negative) Urine Ictotest Not Reportable Urine Urobilinogen 2.0 (<2.0) mg/dL Ur Leukocyte Esterase Neg (Negative) Urine WBC (Auto) 3.0 (0.0-6.0) /HPF Urine RBC (Auto) 5.0 (0.0-6.0) /HPF U Epithel Cells (Auto) 4.0 (0-13.0) /HPF Hyaline Casts 1 /LPF Urine Mucus 3+ /HPF Urine HCG, Qual Negative (Negative) - Medical Decision Making Cdx: ddx: UTI, Gastritis I will give patient IV fluids, IV pain medication, cbc, bmp urinalysis and test Patient's blood work and la is unremarkable all send patient home with Motrin and anti nausea medicine discussed for outpatient patient agrees with plan and additional verbal discharge instructions were given Critical care attestation.: If time is entered above; I have spent that time in minutes in the direct care of this critically ill patient, excluding procedure time. ED Disposition Clinical Impression: Lower abdominal pain, Abdominal cramping Disposition: DC-01 TO HOME OR SELFCARE Is pt being admited?: No Does the pt Need Aspirin: No Condition: Stable Instructions: Abdominal Pain (ED) Prescriptions: Meloxicam [Mobic] 7.5 mg PO DAILY PRN #20 tablet PRN Reason: Pain Promethazine [Phenergan TAB] 25 mg PO Q6HR PRN #25 tab PRN Reason: Pain Referrals: GEORGETTE BUCKLEY MD [Staff Physician] - 3-5 Days
== END 2017-08-04 13:36 | disposition home or self-care (01) ==
LOC: ED 09:59
DX: R10.30 Lower abdominal pain, unspecified (principal); R11.2 Nausea with vomiting, unspecified; R19.7 Diarrhea, unspecified; I10 Essential (primary) hypertension; F17.200 Nicotine dependence, unspecified, uncomplicated; F12.10 Cannabis abuse, uncomplicated
CPT/HCPCS: 36415; 80053; 81001; 81025; 85025; 96361; 96374; 96375; 99283; J1200; J1885; J2765; J7030

== ENCOUNTER 2017-08-17 18:52 | Emergency (ER) | payer MEDICAID ==
[2017-08-17 19:00] VITALS: BP 102/56
[2017-08-17] MEDS ORDERED: TYLENOL ONE (19:03)
[2017-08-17] MEDS ORDERED: TYLENOL PO ONE (19:04)
[2017-08-17 19:30] LABS: BUN/Creatinine Ratio 14; Blood Urea Nitrogen 10 mg/dL (7-17); Calcium 9.1 mg/dL (8.4-10.2); Hemolysis Index 3
[2017-08-17 19:34] LABS: Eosinophils # (Auto) 0.1 K/mm3 (0.0-0.4); Hematocrit 38.9 % (30.3-42.9); Hemoglobin 12.7 gm/dl (10.1-14.3); Lymphocytes # (Auto) 1.8 K/mm3 (1.2-5.4); Lymphocytes % (Auto) 36.9 % (13.4-35.0); Mean Corpuscular HGB Conc 33 % (30-34); Mean Corpuscular Hemoglobin 29 pg (28-32); Mean Corpuscular Volume 90 fl (79-97); Monocytes # (Auto) 0.5 K/mm3 (0.0-0.8); Monocytes % (Auto) 9.1 % (0.0-7.3); Platelet Count 191 K/mm3 (140-440); Red Blood Count 4.35 M/mm3 (3.65-5.03); Red Cell Distribution Width 13.8 % (13.2-15.2)
[2017-08-17 19:35] LABS: Bilirubin,Urine NEG (Negative); Blood,Urine LG (Negative); Color,Urine Yellow (Yellow); Mucus,Urine 3+ /HPF; Urobilinogen,Urine < 2.0 mg/dL (<2.0)
[2017-08-17 19:36] LABS: RBC,Urine > 182.0 /HPF (0.0-6.0); WBC,Urine > 182.0 /HPF (0.0-6.0)
== END 2017-08-17 23:00 | disposition left against medical advice (07) ==
LOC: ED 18:52
DX: R10.9 Unspecified abdominal pain (principal); Z53.21 Procedure and treatment not carried out due to patient leaving prior to being seen by health care provider
CPT/HCPCS: 36415; 80048; 81001; 84702; 85025

== ENCOUNTER 2017-09-08 19:50 | Emergency (ER) | payer MEDICAID ==
[2017-09-08] MEDS ORDERED: TYLENOL PO ONE (20:29)
[2017-09-08 20:46] LABS: Basophils % (Auto) 0.6 % (0.0-1.8); Eosinophils % (Auto) 0.4 % (0.0-4.3); Hematocrit 35.6 % (30.3-42.9); Lymphocytes % (Auto) 15.9 % (13.4-35.0); Mean Corpuscular HGB Conc 34 % (30-34); Mean Corpuscular Hemoglobin 30 pg (28-32); Mean Corpuscular Volume 87 fl (79-97); Monocytes # (Auto) 0.6 K/mm3 (0.0-0.8); Monocytes % (Auto) 10.1 % (0.0-7.3); Platelet Count 156 K/mm3 (140-440); Red Blood Count 4.08 M/mm3 (3.65-5.03); Red Cell Distribution Width 13.4 % (13.2-15.2)
[2017-09-08 20:55] LABS: Bacteria,Urine 1+ /HPF (Negative); Bilirubin,Urine NEG (Negative); Blood,Urine NEG (Negative); Color,Urine Yellow (Yellow); Mucus,Urine 3+ /HPF; Protein,Urine <15 mg/dL mg/dL (Negative); Urobilinogen,Urine < 2.0 mg/dL (<2.0)
[2017-09-08 21:18] LABS: Alanine Aminotransferase 8 units/L (7-56); Albumin 4.1 g/dL (3.9-5); BUN/Creatinine Ratio 17; Blood Urea Nitrogen 12 mg/dL (7-17); Hemolysis Index 8
[2017-09-08 21:46] VITALS: BP 100/58
[2017-09-08] MEDS ORDERED: LEVAQUIN PO ONE (22:26)
--- NOTE | 2017-09-08 22:33 | Emergency Department Report ---
ED Fever HPI - General Chief Complaint: Fever Stated Complaint: RIGHT SIDE PAIN, HEADACHE Time Seen by Provider: 09/08/17 22:02 Source: patient Exam Limitations: no limitations - History of Present Illness Initial Comments: pt. is here for right sided flank pain and suprapubic pain odf 1.5 weeks duration and fever. she says the pain is severe intensity, with aggrav. when she takes a deep breath and no relieving factor Timing/Duration: other (1.5 weeks) Fever Severity/Quality: subjective Fever Therapy [employer]: none ED Review of Systems ROS: Stated complaint: RIGHT SIDE PAIN, HEADACHE Other details as noted in HPI Comment: All other systems reviewed and negative ED Past Medical Hx - Past Medical History Hx Hypertension: Yes (NO MEDICATIONS) Hx Congestive Heart Failure: No Hx Diabetes: No Hx Deep Vein Thrombosis: No Hx Renal Disease: No Hx Sickle Cell Disease: No Hx Seizures: No Hx Asthma: No Hx COPD: No Hx HIV: Yes Additional medical history: Vaginal delivery 11-13-2011, Freuquent UTI, hpv, hiv - Surgical History Past Surgical History?: No - Social History Smoking Status: Current Every Day Smoker Substance Use Type: None, Marijuana - Medications Home Medications: Home Medications Medication Instructions Recorded Confirmed Last Taken Type Nitrofurantoin [place]/M-Cryst 100 mg PO Q12HR #14 capsule 07/23/16 Unknown Rx [Macrobid CAP] Ciprofloxacin HCl [Ciprofloxacin 500 mg PO BID #14 tablet 07/26/16 Unknown Rx TAB] metroNIDAZOLE [Flagyl] 500 mg PO Q12HR #14 tab 08/05/16 Unknown Rx Azithromycin [Zithromax Z-CHINTAN] 250 mg PO DAILY #6 tablet 05/31/17 Unknown Rx Benzonatate [Tessalon Perle] 100 mg PO Q6H PRN #20 capsule 05/31/17 Unknown Rx Meloxicam [Mobic] 7.5 mg PO DAILY PRN #20 tablet 08/04/17 Unknown Rx Promethazine [Phenergan TAB] 25 mg PO Q6HR PRN #25 tab 08/04/17 Unknown Rx Levofloxacin [Levaquin TAB] 500 mg PO ONCE #10 tablet 09/08/17 Unknown Rx ED Physical Exam - General Limitations: No Limitations General appearance: alert, in no apparent distress - Head Head exam: Present: atraumatic, normocephalic - Eye Eye exam: Present: normal appearance - ENT ENT exam: Present: mucous membranes moist - Neck Neck exam: Present: normal inspection - Respiratory Respiratory exam: Present: normal lung sounds bilaterally. Absent: respiratory distress - Cardiovascular Cardiovascular Exam: Present: regular rate, normal rhythm. Absent: systolic murmur, diastolic murmur, rubs, gallop - GI/Abdominal GI/Abdominal exam: Present: soft, tenderness (suprapubic ttp), normal bowel sounds - Rectal Rectal exam: Present: deferred - Extremities Exam Extremities exam: Present: normal inspection - Back Exam Back exam: Present: normal inspection, paraspinal tenderness (right lumbar) - Neurological Exam Neurological exam: Present: alert, oriented X3 - Psychiatric Psychiatric exam: Present: normal affect, normal mood - Skin Skin exam: Present: warm, dry, intact, normal color. Absent: rash ED Course Vital Signs 09/08/17 09/08/17 20:21 21:44 Temperature 101.2 F H 99.0 F Pulse Rate 107 H 84 Respiratory 16 Rate Blood Pressure 104/64 Blood Pressure 100/58 [Right] O2 Sat by Pulse 100 98 Oximetry ED Medical Decision Making - Lab Data Result diagrams: 09/08/17 20:34 09/08/17 20:34 Critical care attestation.: If time is entered above; I have spent that time in minutes in the direct care of this critically ill patient, excluding procedure time. ED Disposition Clinical Impression: UTI (urinary tract infection) Disposition: - TO HOME OR SELFCARE Is pt being admited?: No Does the pt Need Aspirin: No Condition: Stable Instructions: Urinary Tract Infection in Women (ED) Additional Instructions: increase oral fluid intake and take tylenol as needed for pain Prescriptions: Levofloxacin [Levaquin TAB] 500 mg PO ONCE #10 tablet Referrals: MARTIN JEAN MD [Primary Care Provider] - 3-5 Days Time of Disposition: 22:34 Print Language: AZERI
== END 2017-09-08 22:57 | disposition home or self-care (01) ==
LOC: ED 19:50
DX: N39.0 Urinary tract infection, site not specified (principal); I10 Essential (primary) hypertension; F17.200 Nicotine dependence, unspecified, uncomplicated; F12.10 Cannabis abuse, uncomplicated
CPT/HCPCS: 36415; 80053; 81001; 85025; 87040; 87076; 87086; 87186; 99283

== ENCOUNTER 2018-01-14 16:26 | Emergency (ER) | payer MEDICAID ==
[2018-01-14 16:34] VITALS: BP 92/56
--- NOTE | 2018-01-14 17:48 | Emergency Department Report ---
ED Abdominal Pain HPI - General Chief Complaint: Dizziness Stated Complaint: SEZUIRE BODY PAIN Time Seen by Provider: 01/14/18 17:36 Source: patient Mode of arrival: Ambulatory Limitations: No Limitations - History of Present Illness Initial Comments: Ms. Herring is a healthy 22-year-old female with history of HIV and undetectable viral load presents with crampy abdominal pain. She also has generalized malaise. She felt as if she was going on possibly have a seizure. Symptoms occur while she was at work. She wanted to be evaluated in the hospital. 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 She is taking HAART. She is followed closely by infectious disease clinic. She has mild lightheadedness. MD Complaint: abdominal pain -: Gradual, days(s) (1) Location: suprapubic Radiation: none Severity: mild Severity scale (0 -10): 1 - Related Data Previous Rx's Medication Instructions Recorded Last Taken Type Nitrofurantoin Allen/M-Cryst 100 mg PO Q12HR #14 capsule 07/23/16 Unknown Rx [Macrobid CAP] Ciprofloxacin HCl [Ciprofloxacin 500 mg PO BID #14 tablet 07/26/16 Unknown Rx TAB] metroNIDAZOLE [Flagyl] 500 mg PO Q12HR #14 tab 08/05/16 Unknown Rx Azithromycin [Zithromax Z-CHINTAN] 250 mg PO DAILY #6 tablet 05/31/17 Unknown Rx Benzonatate [Tessalon Perle] 100 mg PO Q6H PRN #20 capsule 05/31/17 Unknown Rx Meloxicam [Mobic] 7.5 mg PO DAILY PRN #20 tablet 08/04/17 Unknown Rx Promethazine [Phenergan TAB] 25 mg PO Q6HR PRN #25 tab 08/04/17 Unknown Rx levoFLOXacin [Levaquin TAB] 500 mg PO ONCE #10 tablet 09/08/17 Unknown Rx Allergies Allergy/AdvReac Type Severity Reaction Status Date / Time No Known Allergies Allergy Verified 01/14/18 16:31 ED Review of Systems ROS: Stated complaint: SEZUIRE BODY PAIN Other details as noted in HPI Comment: All other systems reviewed and negative Constitutional: malaise. denies: fever Respiratory: denies: cough Cardiovascular: denies: chest pain ED Past Medical Hx - Past Medical History Hx Hypertension: Yes (NO MEDICATIONS) Hx Congestive Heart Failure: No Hx Diabetes: No Hx Deep Vein Thrombosis: No Hx Renal Disease: No Hx Sickle Cell Disease: No Hx Seizures: Yes Hx Asthma: No Hx COPD: No Hx HIV: Yes Additional medical history: Vaginal delivery 11-13-2011, Freuquent UTI, hpv, hiv - Social History Smoking Status: Current Every Day Smoker Substance Use Type: Marijuana - Medications Home Medications: Home Medications Medication Instructions Recorded Confirmed Last Taken Type Nitrofurantoin Allen/M-Cryst 100 mg PO Q12HR #14 capsule 07/23/16 Unknown Rx [Macrobid CAP] Ciprofloxacin HCl [Ciprofloxacin 500 mg PO BID #14 tablet 07/26/16 Unknown Rx TAB] metroNIDAZOLE [Flagyl] 500 mg PO Q12HR #14 tab 08/05/16 Unknown Rx Azithromycin [Zithromax Z-CHINTAN] 250 mg PO DAILY #6 tablet 05/31/17 Unknown Rx Benzonatate [Tessalon Perle] 100 mg PO Q6H PRN #20 capsule 05/31/17 Unknown Rx Meloxicam [Mobic] 7.5 mg PO DAILY PRN #20 tablet 08/04/17 Unknown Rx Promethazine [Phenergan TAB] 25 mg PO Q6HR PRN #25 tab 08/04/17 Unknown Rx levoFLOXacin [Levaquin TAB] 500 mg PO ONCE #10 tablet 09/08/17 Unknown Rx ED Physical Exam - General Limitations: No Limitations General appearance: alert, in no apparent distress, other (smiling and pleasant jovial appears well) - Head Head exam: Present: atraumatic, normocephalic - Eye Eye exam: Present: normal appearance - ENT ENT exam: Present: mucous membranes moist - Neck Neck exam: Present: normal inspection. Absent: tenderness, meningismus - Respiratory Respiratory exam: Present: normal lung sounds bilaterally. Absent: respiratory distress, wheezes, rales, rhonchi - Cardiovascular Cardiovascular Exam: Present: regular rate, normal rhythm, normal heart sounds. Absent: systolic murmur, diastolic murmur, rubs, gallop - GI/Abdominal GI/Abdominal exam: Present: soft, normal bowel sounds. Absent: distended, tenderness, guarding, rebound - Extremities Exam Extremities exam: Present: normal inspection - Back Exam Back exam: Present: normal inspection - Neurological Exam Neurological exam: Present: alert, oriented X3 - Psychiatric Psychiatric exam: Present: normal affect, normal mood - Skin Skin exam: Present: warm, dry, intact, normal color. Absent: rash ED Course Vital Signs 01/14/18 16:31 Temperature 98.7 F Pulse Rate 93 H Respiratory 18 Rate Blood Pressure 92/56 O2 Sat by Pulse 99 Oximetry ED Medical Decision Making - Medical Decision Making Ms. Herring presents with abdominal cramping generalized malaise. Differential diagnosis includes viral syndrome, flu poisoning, IBS. No discrete pain or tenderness to indicate peritonitis. I do not suspect cholecystitis do not suspect appendicitis. Last menstrual cycle within the last 10 days. Patient given supportive care instructions. I did review her EMR. She has had several similar presentations. I am concerned for potential IBS. Critical care attestation.: If time is entered above; I have spent that time in minutes in the direct care of this critically ill patient, excluding procedure time. ED Disposition Clinical Impression: Abdominal pain Disposition: DC-01 TO HOME OR SELFCARE Is pt being admited?: No Does the pt Need Aspirin: No Condition: Stable Instructions: Acute Abdominal Pain (ED) Referrals: PRIMARY CARE, [Primary Care Provider] - 3-5 Days Forms: Work/School Release Form(ED) Time of Disposition: 17:49
== END 2018-01-14 17:53 | disposition home or self-care (01) ==
LOC: ED 16:26
DX: R10.30 Lower abdominal pain, unspecified (principal); I10 Essential (primary) hypertension; F17.200 Nicotine dependence, unspecified, uncomplicated; F12.90 Cannabis use, unspecified, uncomplicated; Z79.899 Other long term (current) drug therapy
CPT/HCPCS: 99281

== ENCOUNTER 2018-08-02 12:08 | Emergency (ER) | payer MEDICAID ==
--- NOTE | 2018-08-02 12:18 | Emergency Department Report ---
Blank Doc - Documentation Documentation: This is a 22-year-old female that presents with vaginal spotting and pelvic pa in. Stated is about 10 weeks . This initial assessment/diagnostic orders/clinical plan/treatment(s) is/are subject to change based on patient's health status, clinical progression and re-assessment by fellow clinical providers in the ED. Further treatment and workup at subsequent clinical providers discretion. Patient/guardians urged not to elope from the ED as their condition may be serious if not clinically assessed and managed. Initial orders include: 1- Patient sent to [facility] for further evaluation and treatment 2-labs 3- UA 4- US OB
[2018-08-02 13:16] LABS: Basophils % (Auto) 0.7 % (0.0-1.8); Eosinophils % (Auto) 0.4 % (0.0-4.3); Hematocrit 32.8 % (30.3-42.9); Lymphocytes # (Auto) 1.4 K/mm3 (1.2-5.4); Lymphocytes % (Auto) 28.3 % (13.4-35.0); Mean Corpuscular HGB Conc 34 % (30-34); Mean Corpuscular Volume 89 fl (79-97); Monocytes # (Auto) 0.4 K/mm3 (0.0-0.8); Monocytes % (Auto) 7.8 % (0.0-7.3); Platelet Count 182 K/mm3 (140-440); Red Blood Count 3.68 M/mm3 (3.65-5.03); Red Cell Distribution Width 12.9 % (13.2-15.2)
--- NOTE | 2018-08-02 13:30 | Emergency Department Report ---
ED Female HPI - General Chief complaint: Abdominal Pain Stated complaint: 10WKS/SPOTTING/PAIN Time Seen by Provider: 08/02/18 12:17 Source: patient Mode of arrival: Ambulatory Limitations: No Limitations - History of Present Illness Initial comments: Ms. Herring is 22 yo female with hx of HIV and currently 10 weeks who presents with mild pelvic cramping and vaginal spotting. She has US performed 8 weeks ago by previous OBGYN. However, she is no longer able to be followed by previous OB group because she is noncompliant with HAART. 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 She was referred [facility]. DENNISE 02/28/2019 Complaint: vaginal bleeding -: Gradual, days(s) (2) Severity: mild Quality: cramping Consistency: intermittent Improves with: none Worsens with: none Are you Now?: Yes Associated Symptoms: vaginal bleeding, abdominal pain - Related Data Previous Rx's Medication Instructions Recorded Last Taken Type Nitrofurantoin [place]/M-Cryst 100 mg PO Q12HR #14 capsule 07/23/16 Unknown Rx [Macrobid CAP] Ciprofloxacin HCl [Ciprofloxacin 500 mg PO BID #14 tablet 07/26/16 Unknown Rx TAB] metroNIDAZOLE [Flagyl] 500 mg PO Q12HR #14 tab 08/05/16 Unknown Rx Azithromycin [Zithromax Z-CHINTAN] 250 mg PO DAILY #6 tablet 05/31/17 Unknown Rx Benzonatate [Tessalon Perle] 100 mg PO Q6H PRN #20 capsule 05/31/17 Unknown Rx Meloxicam [Mobic] 7.5 mg PO DAILY PRN #20 tablet 08/04/17 Unknown Rx Promethazine [Phenergan TAB] 25 mg PO Q6HR PRN #25 tab 08/04/17 Unknown Rx levoFLOXacin [Levaquin TAB] 500 mg PO ONCE #10 tablet 09/08/17 Unknown Rx Ibuprofen [Ibu] 800 mg PO TID PRN #30 tablet 05/01/18 Unknown Rx Allergies Allergy/AdvReac Type Severity Reaction Status Date / Time No Known Allergies Allergy Verified 08/02/18 12:09 ED Review of Systems ROS: Stated complaint: 10WKS/SPOTTING/PAIN Other details as noted in HPI Comment: All other systems reviewed and negative Constitutional: denies: fever Respiratory: denies: orthopnea Cardiovascular: denies: chest pain ED Past Medical Hx - Past Medical History Previous Medical History?: Yes Hx Hypertension: Yes (NO MEDICATIONS) Hx Congestive Heart Failure: No Hx Diabetes: No Hx Deep Vein Thrombosis: No Hx Renal Disease: No Hx Sickle Cell Disease: No Hx Seizures: Yes Hx Asthma: No Hx COPD: No Hx HIV: Yes Additional medical history: Vaginal delivery 11-13-2011, Frequent UTI, hpv - Surgical History Past Surgical History?: No - Social History Smoking Status: Never Smoker Substance Use Type: None - Medications Home Medications: Home Medications Medication Instructions Recorded Confirmed Last Taken Type Nitrofurantoin [place]/M-Cryst 100 mg PO Q12HR #14 capsule 07/23/16 Unknown Rx [Macrobid CAP] Ciprofloxacin HCl [Ciprofloxacin 500 mg PO BID #14 tablet 07/26/16 Unknown Rx TAB] metroNIDAZOLE [Flagyl] 500 mg PO Q12HR #14 tab 08/05/16 Unknown Rx Azithromycin [Zithromax Z-CHINTAN] 250 mg PO DAILY #6 tablet 05/31/17 Unknown Rx Benzonatate [Tessalon Perle] 100 mg PO Q6H PRN #20 capsule 05/31/17 Unknown Rx Meloxicam [Mobic] 7.5 mg PO DAILY PRN #20 tablet 08/04/17 Unknown Rx Promethazine [Phenergan TAB] 25 mg PO Q6HR PRN #25 tab 08/04/17 Unknown Rx levoFLOXacin [Levaquin TAB] 500 mg PO ONCE #10 tablet 09/08/17 Unknown Rx Ibuprofen [Ibu] 800 mg PO TID PRN #30 tablet 05/01/18 Unknown Rx ED Physical Exam - General Limitations: No Limitations General appearance: alert, in no apparent distress - Head Head exam: Present: atraumatic, normocephalic - Eye Eye exam: Present: normal appearance - ENT ENT exam: Present: mucous membranes moist - Neck Neck exam: Present: normal inspection, full ROM - Respiratory Respiratory exam: Present: normal lung sounds bilaterally. Absent: respiratory distress, wheezes, rales, rhonchi - Cardiovascular Cardiovascular Exam: Present: regular rate, normal rhythm, normal heart sounds. Absent: systolic murmur, diastolic murmur, rubs, gallop - GI/Abdominal GI/Abdominal exam: Present: soft, normal bowel sounds. Absent: distended, tenderness, guarding, rebound - Extremities Exam Extremities exam: Present: normal inspection - Back Exam Back exam: Present: normal inspection - Neurological Exam Neurological exam: Present: alert, oriented X3 - Psychiatric Psychiatric exam: Present: normal affect, normal mood - Skin Skin exam: Present: warm, dry, intact, normal color. Absent: rash ED Course Vital Signs 08/02/18 12:19 Temperature 98.6 F Pulse Rate 80 Respiratory 16 Rate Blood Pressure 95/56 [Left] O2 Sat by Pulse 98 Oximetry ED Medical Decision Making - Lab Data Result diagrams: 08/02/18 12:56 Laboratory Results - last 24 hr 08/02/18 08/02/18 08/02/18 12:56 12:56 12:57 WBC 4.9 RBC 3.68 Hgb 11.0 Hct 32.8 MCV 89 MCH 30 MCHC 34 RDW 12.9 L Plt Count 182 Lymph % (Auto) 28.3 Sabine % (Auto) 7.8 H Eos % (Auto) 0.4 Baso % (Auto) 0.7 Lymph # 1.4 Sabine # 0.4 Eos # 0.0 Baso # 0.0 Seg Neutrophils % 62.8 Seg Neutrophils # 3.1 HCG, Quant [id number] H Urine Color Urine Turbidity Urine pH Ur Specific [place] Urine Protein Urine Glucose (UA) Urine Ketones Urine Blood Urine Nitrite Urine Bilirubin Urine Urobilinogen Ur Leukocyte Esterase Urine WBC (Auto) Urine RBC (Auto) U Epithel Cells (Auto) Urine Bacteria (Auto) Urine Mucus Blood Type O POSITIVE Antibody Screen Negative 08/02/18 13:52 WBC RBC Hgb Hct MCV MCH MCHC RDW Plt Count Lymph % (Auto) Sabine % (Auto) Eos % (Auto) Baso % (Auto) Lymph # Sabine # Eos # Baso # Seg Neutrophils % Seg Neutrophils # HCG, Quant Urine Color Yellow Urine Turbidity Slightly-cloudy Urine pH 7.0 Ur Specific [place] 1.020 Urine Protein <15 mg/dl Urine Glucose (UA) Neg Urine Ketones Neg Urine Blood Neg Urine Nitrite Neg Urine Bilirubin Neg Urine Urobilinogen < 2.0 Ur Leukocyte Esterase Tr Urine WBC (Auto) 6.0 Urine RBC (Auto) 4.0 U Epithel Cells (Auto) 16.0 H Urine Bacteria (Auto) 1+ Urine Mucus 3+ Blood Type Antibody Screen - Medical Decision Making Threatened viable IUP rh+ Critical care attestation.: If time is entered above; I have spent that time in minutes in the direct care of this critically ill patient, excluding procedure time. ED Disposition Clinical Impression: Threatened Disposition: DC-01 TO HOME OR SELFCARE Is pt being admited?: No Does the pt Need Aspirin: No Condition: Stable Instructions: Threatened Miscarriage (ED) Referrals: SADE TRUJILLO MD [Primary Care Provider] - 3-5 Days
[2018-08-02 14:33] LABS: Bacteria,Urine 1+ /HPF (Negative); Bilirubin,Urine NEG (Negative); Blood,Urine NEG (Negative); Color,Urine Yellow (Yellow); Mucus,Urine 3+ /HPF; Protein,Urine <15 mg/dL mg/dL (Negative); Urobilinogen,Urine < 2.0 mg/dL (<2.0)
[2018-08-02 15:56] VITALS: BP 92/56
--- NOTE | 2018-08-02 16:24 | Ultrasound Report ---
PROCEDURE: US OB <= 14 WEEKS FETUS TECHNIQUE: Transabdominal OB ultrasound. HISTORY: pelvic pain/bleeding COMPARISONS: None currently available. FINDINGS: Single intrauterine dates 10.4 weeks by crown rump length. DENNISE equals February 24, 2019. T his is 4 days older compared to the LMP and is within normal limits. [place]-rump length measures 3.7 cm. Placenta: Posterior and low lying heart rate: 179 BPM. Uterus: 11.8 x 6.4 x 9.2 cm. Intrauterine gestational sac, yolk sac, and pole identified. No hill bchorionic bleed. Right ovary: 3.1 x 2.2 x 2.4 cm. 1.6 cm well-defined simple appearing cyst. Left Ovary: 2.3 x 1.6 x 2.9 cm. Adnexa: Unremarkable. No free fluid. IMPRESSION: * Single live intrauterine . * Low-lying placenta. * Right ovarian follicular or corpus luteal cyst. This document is electronically signed by Black Ngo MD., August 02 2018 04:22:14 PM ET
== END 2018-08-02 15:56 | disposition home or self-care (01) ==
LOC: ED 12:08
DX: O20.0 Threatened abortion (principal); I10 Essential (primary) hypertension; Z3A.10 10 weeks gestation of pregnancy
CPT/HCPCS: 36415; 76801; 81001; 84702; 85025; 86850; 86900; 86901; 99284

== ENCOUNTER 2018-11-08 18:53 | Emergency (ER) | payer MEDICAID ==
--- NOTE | 2018-11-08 19:29 | Emergency Department Report ---
Blank Doc - Documentation Documentation: This is a 22-year-old female that presents with chest pain and cough. Stated has chest pain only during coughing. Currently denies any chest pain or SOB. Stated is 24 weeks . Denies any abdominal or pelvic pain. Denies any vaginal bleeding. This initial assessment/diagnostic orders/clinical plan/treatment(s) is/are subject to change based on patient's health status, clinical progression and re- assessment by fellow clinical providers in the ED. Further treatment and workup at subsequent clinical providers discretion. Patient/guardians urged not to elope from the ED as their condition may be serious if not clinically assessed and managed. Initial orders include: 1- Patient sent to [facility] for further evaluation and treatment
[2018-11-08] MEDS ORDERED: ROBITUSSIN PO ONE (21:15)
--- NOTE | 2018-11-08 21:15 | Emergency Department Report ---
Minor Respiratory - HPI Chief Complaint: Chest Pain Stated Complaint: CHEST PAIN/COUGH Time Seen by Provider: 11/08/18 19:27 Minor Respiratory: Yes Able to Tolerate Fluids, Yes Cough, Yes Chest Pain (only with coughing), No Rhinorrhea, No Sore Throat, No Ear Pain, No Sick Contacts, No Hemoptysis, No Shortness of Breath, No Fever Other History: Is a 22-year-old at approximately 24 weeks gestation who was recently seen at labor and delivery and cleared to be evaluated in the ER for intermittent coughing with chest pain. Patient states that she is being coughing intermittently for the past week. Patient describes cough as productive with green sputum. She denies fever/chills/nausea vomiting, vaginal bleeding, vaginal discharge or dysuria ED Review of Systems ROS: Stated complaint: CHEST PAIN/COUGH Other details as noted in HPI Comment: All other systems reviewed and negative Respiratory: cough. denies: shortness of breath, SOB with exertion, SOB at rest, wheezing Cardiovascular: denies: palpitations, dyspnea on exertion ED Past Medical Hx - Past Medical History Previous Medical History?: Yes Hx Hypertension: No Hx Congestive Heart Failure: No Hx Diabetes: No Hx Deep Vein Thrombosis: No Hx Renal Disease: No Hx Sickle Cell Disease: No Hx Seizures: Yes (Dx in 2017 last seizure 05/2017) Hx Asthma: No Hx COPD: No Hx HIV: Yes (Dx 07/2016) Additional medical history: Vaginal delivery 11-13-2011, Frequent UTI, hpv - Surgical History Past Surgical History?: No - Social History Smoking Status: Never Smoker Substance Use Type: None - Medications Home Medications: Home Medications Medication Instructions Recorded Confirmed Last Taken Type Nitrofurantoin [place]/M-Cryst 100 mg PO Q12HR #14 capsule 07/23/16 Unknown Rx [Macrobid CAP] Ciprofloxacin HCl [Ciprofloxacin 500 mg PO BID #14 tablet 07/26/16 Unknown Rx TAB] metroNIDAZOLE [Flagyl] 500 mg PO Q12HR #14 tab 08/05/16 Unknown Rx Benzonatate [Tessalon Perle] 100 mg PO Q6H PRN #20 capsule 05/31/17 Unknown Rx Meloxicam [Mobic] 7.5 mg PO DAILY PRN #20 tablet 08/04/17 Unknown Rx Promethazine [Phenergan TAB] 25 mg PO Q6HR PRN #25 tab 08/04/17 Unknown Rx levoFLOXacin [Levaquin TAB] 500 mg PO ONCE #10 tablet 09/08/17 Unknown Rx Ibuprofen [Ibu] 800 mg PO TID PRN #30 tablet 05/01/18 Unknown Rx Azithromycin [Zithromax Z-CHINTAN] 250 mg PO DAILY #6 tablet 11/08/18 Unknown Rx guaiFENesin [Robitussin] 200 mg PO Q6H #100 ml 11/08/18 Unknown Rx Minor Respiratory Exam - Exam General: Vital signs noted. No distress. Alert and acting appropriately. HEENT: Yes Moist Mucous Membranes, No Pharyngeal Erythema, No Pharyngeal Exudates, No Rhinorrhea, No Conjuctival Injection, No Frontal Tenderness, No Maxillary Tenderness Ear: Neither TM Bulge, Neither TM Erythema, Neither EAC Pain, Neither EAC Discharge Neck: Yes Supple, No Adenopathy Lungs: Yes Good Air Exchange, No Wheezes, No Ronchi, No Stridor, No Cough, No Labored Respirations, No Retractions, No Use of Accessory Muscles, No Other Abnormal Lung Sounds Heart: Yes Regular, No Murmur Abdomen: Yes Normal Bowel Sounds, No Tenderness, No Peritoneal Signs Skin: No Rash, No Edema Neurologic: Alert and oriented, no deficits. Musculoskeletal: Unremarkable. ED Course Vital Signs 11/08/18 19:28 Temperature 98.3 F Pulse Rate 87 Respiratory 18 Rate Blood Pressure 93/54 O2 Sat by Pulse 100 Oximetry ED Medical Decision Making - Medical Decision Making 22-year-old female presents for bronchitis. Due to patient's green productive cough will treat prophylactically. Patient is a 24 weeks gestation who will follow up with her [facility]OSPICE [facility]PERINTENDENT. Azithromycin pack and Robitussin given at discharge. Patient is in no respiratory distress. Vital signs are normal she had a sudden instructions given. Critical care attestation.: If time is entered above; I have spent that time in minutes in the direct care of this critically ill patient, excluding procedure time. ED Disposition Clinical Impression: Upper respiratory infection Disposition: DC-01 TO HOME OR SELFCARE Is pt being admited?: No Does the pt Need Aspirin: No Condition: Stable Instructions: Upper Respiratory Infection (ED), Acute Bronchitis (ED) Additional Instructions: Make sure to follow up with the primary care physician as discussed. Take all your medications as you've been prescribed. If you have any worsening symptoms or develop new symptoms please return to ED immediately. Prescriptions: guaiFENesin [Robitussin] 200 mg PO Q6H #100 ml Azithromycin [Zithromax Z-CHINTAN] 250 mg PO DAILY #6 tablet Referrals: STEPHENIE NAIDU MD [Primary Care Provider] - 3-5 Days [facility] [Provider Group] - 3-5 Days Forms: Accompanied Note, Work/School Release Form(ED) Time of Disposition: 21:24
[2018-11-08 21:31] VITALS: BP 106/55
== END 2018-11-08 21:40 | disposition home or self-care (01) ==
LOC: ED 18:53
DX: O99.512 Diseases of the respiratory system complicating pregnancy, second trimester (principal); Z3A.24 24 weeks gestation of pregnancy; Z79.899 Other long term (current) drug therapy
CPT/HCPCS: 99282

== ENCOUNTER 2018-12-28 15:22 | Outpatient (CLI) | payer MEDICAID ==
[2018-12-28] MEDS ORDERED: LACTATED RINGERS ONE (16:00)
[2018-12-28] MEDS ORDERED: ZOFRAN IV ONE (16:04)
[2018-12-28] MEDS ORDERED: LACTATED RINGERS 500 ML IV ONE (16:04)
[2018-12-28] MEDS ORDERED: LACTATED RINGERS 1,000 ML IV ONE (16:04)
[2018-12-28 17:19] VITALS: BP 94/53
[2018-12-28 17:28] LABS: Bilirubin,Urine NEG (Negative); Blood,Urine NEG (Negative); Color,Urine Amber (Yellow); Mucus,Urine 3+ /HPF
[2018-12-28] MEDS ORDERED: TYLENOL PO ONE (18:45)
--- NOTE | 2018-12-28 20:47 | Ultrasound Report ---
ULTRASOUND BIOPHYSICAL PROFILE Limited OB US Indication: [place]; FHT decel noted at 1721 Comparison: None Findings: breathing movement = 2 Gross body movement = 2 tone = 2 Qualitative amniotic fluid volume = 2 Total biophysical score = 8/8 Amniotic fluid index is 9.1 cm. Presentation is cephalic. heart rate is 156 beats per minute. Impression: biophysical profile equals 8/8. Signer Name: Ryan Adler MD Signed: 12/28/2018 8:42 PM Workstation Name: [id number]
== END 2018-12-28 19:30 | disposition home or self-care (01) ==
LOC: TRG 15:22
PROVIDERS: ATTEND Obstetrics & Gynecology
DX: O21.2 Late vomiting of pregnancy (principal); O26.893 Other specified pregnancy related conditions, third trimester; R25.2 Cramp and spasm; R42 Dizziness and giddiness; O47.03 False labor before 37 completed weeks of gestation, third trimester; O98.713 Human immunodeficiency virus [HIV] disease complicating pregnancy, third trimester; O13.3 Gestational [pregnancy-induced] hypertension without significant proteinuria, third trimester; Z3A.31 31 weeks gestation of pregnancy
CPT/HCPCS: 59025; 76815; 76819; 81001; 96361; 96374; J2405; J7120; 96360

== ENCOUNTER 2019-01-25 00:06 | Outpatient (CLI) | payer MEDICAID ==
[2019-01-25 00:42] VITALS: BP 116/55
[2019-01-25] MEDS ORDERED: LACTATED RINGERS 1,000 ML ONE ×2 (01:16→02:21)
[2019-01-25] MEDS ORDERED: LACTATED RINGERS 1,000 ML IV ONE (01:30)
[2019-01-25] MEDS ORDERED: BRETHINE ONE (02:21)
[2019-01-25] MEDS: BRETHINE SUB-Q SCH ×2 (02:26→02:51)
== END 2019-01-25 06:29 | disposition home or self-care (01) ==
LOC: TRG 00:06
PROVIDERS: ATTEND Obstetrics & Gynecology
DX: O62.9 Abnormality of forces of labor, unspecified (principal); O13.3 Gestational [pregnancy-induced] hypertension without significant proteinuria, third trimester; Z3A.35 35 weeks gestation of pregnancy
CPT/HCPCS: 59025; 96372; J3105; J7120; 96360; 96361

== ENCOUNTER 2019-06-05 15:53 | Emergency (ER) | payer MEDICAID | END 2019-06-05 21:30 | disposition left against medical advice (07) | LOC: ED 15:53 | DX: O46.91 Antepartum hemorrhage, unspecified, first trimester (principal); Z53.21 Procedure and treatment not carried out due to patient leaving prior to being seen by health care provider ==

== ENCOUNTER 2019-06-06 15:38 | Emergency (ER) | payer MEDICAID ==
--- NOTE | 2019-06-06 16:33 | Event Note ---
ED Screening Note ED Screening Note: LMP 05/15 CO HOME PREG TEST POS NOW W VAG BLEEDING G4 SAW S.SIDE MED YESTERDAY THEY SENT PT HERE BUT PT STATES SHE WAS NEVER SEEN This initial assessment/diagnostic orders/clinical plan/treatment(s) is/are subject to change based on patients health status, clinical progression and re- assessment by fellow clinical providers in the ED. Further treatment and workup at subsequent clinical providers discretion. Patient/guardian urged not to elope from the ED as their condition may be serious if not clinically assessed and managed. Initial orders include: UA LABS RO ECOPTIC/AB
[2019-06-06 16:48] LABS: Hematocrit 33.2 % (30.3-42.9); Hemoglobin 10.9 gm/dl (10.1-14.3); Mean Corpuscular HGB Conc 33 % (30-34); Mean Corpuscular Volume 80 fl (79-97); Platelet Count 177 K/mm3 (140-440); Red Blood Count 4.12 M/mm3 (3.65-5.03); Red Cell Distribution Width 17.5 % (13.2-15.2)
[2019-06-06 17:08] LABS: BUN/Creatinine Ratio 7; Blood Urea Nitrogen 4 mg/dL (7-17); Calcium 9.2 mg/dL (8.4-10.2); Hemolysis Index 4
[2019-06-06 18:47] LABS: Bilirubin,Urine NEG (Negative); Blood,Urine LG (Negative); Color,Urine Yellow (Yellow); Mucus,Urine 3+ /HPF; Protein,Urine <15 mg/dL mg/dL (Negative); Urobilinogen,Urine < 2.0 mg/dL (<2.0)
--- NOTE | 2019-06-06 18:52 | Emergency Department Report ---
ED HPI - General Chief complaint: Vaginal Bleeding Stated complaint: /BLEEDING Time Seen by Provider: 06/06/19 16:29 Source: patient Mode of arrival: Ambulatory Limitations: No Limitations - History of Present Illness Initial comments: Patient is a 23-year-old female that presents emergency room for vaginal bleeding during early . Patient states her vaginal bleeding started yesterday. Patient states is increasing. Patient states she went to see her BIOINFORMATICS ANALYST and her BIOINFORMATICS ANALYST sent to the emergency room for evaluation. Patient states she is approximately 5 weeks . Patient denies vaginal discharge. Patient denies fever and chills. Patient states she is having abdominal pain consistent with cramping. Patient states it's a 1-2 out of 10 and is intermittent. MD Complaint: abdominal pain, vaginal bleeding -: Sudden Location: pelvis, abdomen Radiation: none Severity: moderate Severity scale (0 -10): 2 Quality: cramping Consistency: intermittent Improves with: rest Worsens with: movement Associated symptoms: vaginal bleeding, abdominal pain. denies: vaginal discharge, dysuria, headache, vision changes, malaise, dysparuenia, rash, se izure, shortness of breath, syncope, weakness :: Yes OB History - Current : no complications OB History - Previous Pregnancies: no complications Pre-trudy care: followed by OB - Related Data Home Medications Medication Instructions Recorded Confirmed Last Taken Acyclovir [Zovirax Tab] 400 mg PO DAILY 12/28/18 02/16/19 Unknown Emtricitabin/Tenofovir [TRUVADA 1 tab PO QDAY 12/28/18 02/16/19 Unknown 200-300 mg] Previous Rx's Medication Instructions Recorded Last Taken Type Emtricitabine [Emtriva] 200 mg PO QDAY #30 capsule 02/18/19 Unknown Rx Ibuprofen [Motrin 600 MG tab] 600 mg PO Q6HR #30 tablet 02/18/19 Unknown Rx Pnv,Calcium 72/Iron/Folic Acid 1 each PO DAILY #30 tablet 02/18/19 Unknown Rx [ Plus Tablet] Tenofovir [Viread] 300 mg PO QDAY #30 tablet 02/18/19 Unknown Rx Allergies Allergy/AdvReac Type Severity Reaction Status Date / Time No Known Allergies Allergy Verified 12/28/18 15:28 ED Review of Systems ROS: Stated complaint: /BLEEDING Other details as noted in HPI Constitutional: denies: chills, fever Eyes: denies: eye pain, eye discharge, vision change ENT: denies: ear pain, throat pain Respiratory: denies: cough, shortness of breath, wheezing Cardiovascular: denies: chest pain, palpitations Endocrine: no symptoms reported Gastrointestinal: abdominal pain. denies: nausea, diarrhea Genitourinary: as per HPI. denies: urgency, dysuria, discharge Musculoskeletal: denies: back pain, joint swelling, arthralgia Skin: denies: rash, lesions Neurological: denies: headache, weakness, paresthesias Psychiatric: denies: anxiety, depression Hematological/Lymphatic: denies: easy bleeding, easy bruising ED Past Medical Hx - Past Medical History Previous Medical History?: Yes Hx Hypertension: No Hx Congestive Heart Failure: No Hx Diabetes: No Hx Deep Vein Thrombosis: No Hx Renal Disease: No Hx Sickle Cell Disease: No Hx Seizures: Yes (x 1) Hx Asthma: No Hx COPD: No Hx HIV: Yes ([place]; Pt states, "I'm undetectable.") Additional medical history: Vaginal delivery 11-13-2011, Frequent UTI, hpv - Surgical History Past Surgical History?: No - Family History Family history: no significant - Social History Smoking Status: Never Smoker Substance Use Type: None - Medications Home Medications: Home Medications Medication Instructions Recorded Confirmed Last Taken Type Acyclovir [Zovirax Tab] 400 mg PO DAILY 12/28/18 02/16/19 Unknown History Emtricitabin/Tenofovir [TRUVADA 1 tab PO QDAY 12/28/18 02/16/19 Unknown History 200-300 mg] Emtricitabine [Emtriva] 200 mg PO QDAY #30 capsule 02/18/19 Unknown Rx Ibuprofen [Motrin 600 MG tab] 600 mg PO Q6HR #30 tablet 02/18/19 Unknown Rx Pnv,Calcium 72/Iron/Folic Acid 1 each PO DAILY #30 tablet 02/18/19 Unknown Rx [ Plus Tablet] Tenofovir [Viread] 300 mg PO QDAY #30 tablet 02/18/19 Unknown Rx ED Physical Exam - General Limitations: No Limitations General appearance: alert, in no apparent distress - Head Head exam: Present: atraumatic, normocephalic - Eye Eye exam: Present: normal appearance - ENT ENT exam: Present: mucous membranes moist - Neck Neck exam: Present: normal inspection - Respiratory Respiratory exam: Present: normal lung sounds bilaterally. Absent: respiratory distress - Cardiovascular Cardiovascular Exam: Present: regular rate, normal rhythm. Absent: systolic murmur, diastolic murmur, rubs, gallop - GI/Abdominal GI/Abdominal exam: Present: soft, tenderness (suprapubic tenderness), normal bowel sounds - Extremities Exam Extremities exam: Present: normal inspection - Back Exam Back exam: Present: normal inspection - Neurological Exam Neurological exam: Present: alert, oriented X3 - Psychiatric Psychiatric exam: Present: normal affect, normal mood - Skin Skin exam: Present: warm, dry, intact, normal color. Absent: rash ED Course Vital Signs 06/06/19 06/06/19 06/06/19 15:55 16:31 16:35 Temperature 98.8 F 98.8 F Pulse Rate 86 83 Respiratory 15 18 Rate Blood Pressure 99/53 Blood Pressure 99/53 [Right] O2 Sat by Pulse 97 100 Oximetry 06/06/19 20:21 Temperature Pulse Rate 71 Respiratory 18 Rate Blood Pressure Blood Pressure 106/67 [Right] O2 Sat by Pulse 97 Oximetry - Reevaluation(s) Reevaluation #1: I discussed all results with patient. I discussed plan of care with patient. Patient agrees with plan of care. Patient is stable for discharge. Patient will be discharged home. Patient given discharge instructions. Patient voiced understanding of discharge instructions. 06/06/19 19:22 ED Medical Decision Making - Lab Data Result diagrams: 06/06/19 16:42 06/06/19 16:42 - Radiology Data Radiology results: report reviewed US OB <= 14 wk fetus add gest, US OB <= 14 weeks fetus, US OB transvaginal INDICATION / CLINICAL INFORMATION: PELVIC PAIN. COMPARISON: None available. FINDINGS: Uterus measures 10 cm. There appear to be 2 intrauterine gestational sacs measuring 6 mm and 12 mm. This would correspond to 5 weeks, 2 days and 6 weeks gestation, respectively. A yolk sac is identified in the larger gestational sac but not the smaller. The ovaries are normal. - Medical Decision Making Patient is a 23-year-old female that presents emergency room with complaints of abdominal cramping and vaginal bleeding. Patient also states she is . Patient states she fractionally 5 weeks . Patient has not had a confirmatory ultrasound prior to today. Patient's ultrasound confirms a 5 week IUP. Patient's clinical findings consistent with threatened miscarriage and vaginal bleeding in . Patient stable for discharge. Patient discharged home. Patient given discharge instructions. Patient's labs unremarkable. Patient is O+. - Differential Diagnosis threatened miscarriage, miscarriage, vaginal bleeding, abdominal pain. Critical care attestation.: If time is entered above; I have spent that time in minutes in the direct care of this critically ill patient, excluding procedure time. ED Disposition Clinical Impression: Vaginal bleeding before 22 weeks gestation, Abdominal cramping, Threatened miscarriage Qualifiers: Weeks of gestation: less than 8 weeks Qualified Code(s): Z3A.01 - Less than 8 weeks gestation of Disposition: - TO HOME OR SELFCARE Is pt being admited?: No Does the pt Need Aspirin: No Condition: Stable Instructions: Threatened Miscarriage (ED), (ED) Additional Instructions: Patient to follow-up with primary care in 2-3 days. Patient to follow-up with chief unit forester in 2-3 days. Patient to return to ER if condition worsens. Patient to rest. Patient to increase water. Patient to continue vitamin. Patient continue all other medications. Nothing per vagina until cleared by BIOINFORMATICS ANALYST. Patient's take Tylenol when necessary for pain. Referrals: PRIMARY CARE, [Primary Care Provider] - 2-3 Days Forms: Work/School Release Form(ED) Time of Disposition: 20:09
--- NOTE | 2019-06-06 19:01 | Ultrasound Report ---
US OB <= 14 wk fetus add gest, US OB <= 14 weeks fetus, US OB transvaginal INDICATION / CLINICAL INFORMATION: PELVIC PAIN. COMPARISON: None available. FINDINGS: Uterus measures 10 cm. There appear to be 2 intrauterine gestational sacs measuring 6 mm and 12 mm. This would correspond to 5 weeks, 2 days and 6 weeks gestation, respectively. A yolk sac is identified in the larger gestational sac but not the smaller. The ovaries are normal. Signer Name: Julian Ortiz MD Signed: 06/06/2019 6:57 PM Workstation Name: [id number]
[2019-06-06 20:21] VITALS: BP 106/67
== END 2019-06-06 20:24 | disposition home or self-care (01) ==
LOC: ED 15:38
DX: O20.0 Threatened abortion (principal); Z3A.01 Less than 8 weeks gestation of pregnancy; G40.909 Epilepsy, unspecified, not intractable, without status epilepticus; Z21 Asymptomatic human immunodeficiency virus [HIV] infection status; Z79.1 Long term (current) use of non-steroidal anti-inflammatories (NSAID); Z79.899 Other long term (current) drug therapy
CPT/HCPCS: 36415; 76801; 76802; 76817; 80048; 81001; 84702; 85027; 86900; 86901